=== PATIENT | female | born 1945 | race Caucasian/White ===

== ENCOUNTER 2022-03-23 22:06 | Emergency (ER) | payer MEDICARE ==
[~2022-03-23] VITALS: Ht 165.1 cm; Wt 108.9 kg
[2022-03-23] MEDS ORDERED: KETOROLAC TROMETHAMINE 60 MG/2 ML VIAL IM ONE (23:15)
[2022-03-23] MEDS ORDERED: KETOROLAC TROMETHAMINE 60 MG/2 ML VIAL ONE (23:50)
[2022-03-24] MEDS ORDERED: CIPRO500 MG PO (02:40)
[2022-03-24] MEDS ORDERED: PYRIDIUM100 MG PO (02:40)
== END 2022-03-24 02:45 | disposition home or self-care (01) ==
LOC: FSED 22:16
DX: R30.0 Dysuria (principal); N20.0 Calculus of kidney; R10.30 Lower abdominal pain, unspecified; K57.30 Diverticulosis of large intestine without perforation or abscess without bleeding
CPT/HCPCS: 74176; 81003; 99283; J1885

== ENCOUNTER 2022-08-25 17:10 | Inpatient (IN) | payer MEDICARE ==
[~2022-08-25] VITALS: Ht 165.1 cm; Wt 99.8 kg
[~2022-08-25 17:10] MED LIST: CIPRO500 MG PO; PYRIDIUM100 MG PO
[2022-08-25] MEDS ORDERED: SODIUM CHLORIDE 0.9% 1000ML 1,000 ML ONE ×2 (17:50→21:10)
[2022-08-25] MEDS ORDERED: KETOROLAC TROMETHAMINE 30 MG/ML VIAL ONE (17:50)
[2022-08-25] MEDS ORDERED: ONDANSETRON HCL INJ 2MG/ML 2ML 2 MG/ML VIAL ONE (17:50)
[2022-08-25] MEDS ORDERED: KETOROLAC TROMETHAMINE 30 MG/ML VIAL IV STA (17:51)
[2022-08-25] MEDS ORDERED: ONDANSETRON HCL INJ 2MG/ML 2ML 2 MG/ML VIAL IV STA (17:51)
[2022-08-25] MEDS ORDERED: SODIUM CHLORIDE 0.9% 1000ML 1,000 ML IV ONE (18:00)
[2022-08-25] MEDS ORDERED: TAMSULOSIN HCL 0.4 MG CAP PO SCH (20:15)
[2022-08-25] MEDS ORDERED: Morphine 4mg INJECTION 4 MG/ML INJ IV PRN (20:30)
[2022-08-25] MEDS ORDERED: ONDANSETRON HCL INJ 2MG/ML 2ML 2 MG/ML VIAL IV PRN (20:30)
[2022-08-25] MEDS ORDERED: KETOROLAC TROMETHAMINE 30 MG/ML VIAL IV PRN (20:30)
[2022-08-25] MEDS ORDERED: TAMSULOSIN HCL 0.4 MG CAP PO ONE (20:30)
[2022-08-25] MEDS ORDERED: TAMSULOSIN HCL 0.4 MG CAP ONE ×2 (21:09→21:10)
[2022-08-25] MEDS ORDERED: CEFTRIAXONE 1 GM VIAL ONE (21:10)
[2022-08-26] VITALS (7 sets, daily range): BP systolic 118–138; BP diastolic 56–86
[2022-08-26] MEDS ORDERED: ZESTRIL10 MG PO (03:44)
[2022-08-26] MEDS ORDERED: HYDROCHLOROTHIA25 MG PO (03:44)
[2022-08-26] MEDS: SODIUM CHLORIDE 0.9% 1000ML 1,000 ML IV SCH ×2 (06:18→06:30)
[2022-08-26 07:33] LABS: BASOPHILS % 0.3 % (0.0-1.0); EOSINOPHILS # (AUTO) 0.1 (0.0-0.4); EOSINOPHILS % 1.6 % (0.0-6.0); HEMATOCRIT 43.5 % (34.2-44.1); HEMOGLOBIN 13.7 g/dL (12.0-16.0); LYMPHOCYTES # (AUTO) 1.4 (1.0-3.2); LYMPHOCYTES % 22.7 % (18.0-39.1); MEAN CORPUSCULAR HEMOGLOBIN 32.5 pg (28-32); MEAN CORPUSCULAR HGB CONC 31.5 g/dL (31-35); MEAN CORPUSCULAR VOLUME 103.3 fL (81-99); MONOCYTES # (AUTO) 0.6 (0.2-0.8); MONOCYTES % 9.2 % (4.4-11.3); PLATELET COUNT 240 x10e3/uL (140-360); RED BLOOD COUNT 4.21 x10e6/uL (3.6-5.1); RED CELL DISTRIBUTION WIDTH 11.8 % (11.7-14.4)
[2022-08-26 07:58] LABS: ALBUMIN 3.7 g/dL (3.5-5.0); ALBUMIN/GLOBULIN RATIO 1.1 (0.8-2.0); CALCIUM 9.4 mg/dL (8.4-10.2); CREATININE, SERUM 0.68 mg/dL (0.57-1.11)
[2022-08-26] MEDS ORDERED: TAMSULOSIN HCL 0.4 MG CAP PO SCH (21:00)
== END 2022-08-26 15:32 | disposition home or self-care (01) | DRG 694 ==
LOC: FSED 17:46 → ERHOLD 20:35 → MED/SURG3 21:54
PROVIDERS: ADMIT Internal Medicine; ATTEND Internal Medicine
DX: N13.2 Hydronephrosis with renal and ureteral calculous obstruction (principal); I10 Essential (primary) hypertension; E66.01 Morbid (severe) obesity due to excess calories; N32.89 Other specified disorders of bladder; Z68.36 Body mass index [BMI] 36.0-36.9, adult; Z79.899 Other long term (current) drug therapy; Z82.49 Family history of ischemic heart disease and other diseases of the circulatory system; Z83.3 Family history of diabetes mellitus
CPT/HCPCS: 36415; 74176; 80048; 80053; 80076; 81003; 85025; 87086; 96374; 96376; 99284; J0696; J1885; J2405; J7030

== ENCOUNTER 2023-06-18 21:20 | Emergency (ER) | payer MEDICARE ==
[~2023-06-18] VITALS: Ht 165.1 cm; Wt 98.4 kg
[~2023-06-18 21:20] MED LIST changes: +HYDROCHLOROTHIA25 MG PO; +ZESTRIL10 MG PO
[2023-06-18 22:11] LABS: BASOPHILS # (AUTO) 0.1 (0.0-0.1); BASOPHILS % 0.4 % (0.0-1.0); EOSINOPHILS # (AUTO) 0.3 (0.0-0.4); HEMATOCRIT 41.1 % (34.2-44.1); HEMOGLOBIN 14.1 g/dL (12.0-16.0); LYMPHOCYTES # (AUTO) 2.3 (1.0-3.2); LYMPHOCYTES % 17.2 % (18.0-39.1); MEAN CORPUSCULAR HEMOGLOBIN 33.1 pg (28-32); MEAN CORPUSCULAR HGB CONC 34.3 g/dL (31-35); MEAN CORPUSCULAR VOLUME 96.5 fL (81-99); MONOCYTES # (AUTO) 1.7 (0.2-0.8); MONOCYTES % 12.4 % (4.4-11.3); NEUTROPHILS % 67.6 % (38.7-80.0); PLATELET COUNT 283 x10e3/uL (140-360); RED BLOOD COUNT 4.26 x10e6/uL (3.6-5.1); RED CELL DISTRIBUTION WIDTH 12.4 % (11.7-14.4); WHITE BLOOD COUNT 13.34 x10e3/uL (4.8-10.8)
[2023-06-18 22:19] LABS: ANION GAP 15.7 mmol/L (8-16); CALCIUM 9.9 mg/dL (8.4-10.2); CREATININE, SERUM 1.68 mg/dL (0.57-1.11); POTASSIUM 4.7 mmol/L (3.5-5.1)
[2023-06-18 22:28] LABS: BACTERIA,URINE MANY /HPF; CLARITY,URINE CLOUDY (CLEAR); COLOR,URINE YELLOW (YELLOW); EPITHELIAL CELLS,URINE MANY /LPF; KETONES,URINE NEGATIVE (NEGATIVE); LEUKOCYTE ESTERASE ,URINE NEGATIVE (NEGATIVE); NITRITE,URINE NEGATIVE (NEGATIVE); PROTEIN,URINE DIPSTICK >=300 (NEGATIVE); RBC,URINE >50 /HPF (0-5); RENAL EPITHELIAL CELLS,URINE FEW; URINE UROBILINOGEN 0.2 mg/dL (0.2 - 1)
[2023-06-18 22:29] LABS: CALCIUM OXALATE CRYSTALS,UR FEW (FEW); HYALINE CASTS 0-1 (0-1)
[2023-06-19] MEDS ORDERED: CEFTRIAXONE 1 GM VIAL ONE ×2 (00:13→00:21)
[2023-06-19] MEDS ORDERED: LACTATED RINGER'S 1,000 ML ONE (00:13)
[2023-06-19] MEDS ORDERED: LACTATED RINGER'S 500 ML IV ONE (00:15)
[2023-06-19 01:09] VITALS: BP 91/51; PULSE 68; RESP 18; TEMP 97.7; O2SAT 95
== END 2023-06-19 01:20 | disposition home or self-care (01) ==
LOC: FSED 21:28
DX: R10.30 Lower abdominal pain, unspecified (principal); R11.0 Nausea; N17.9 Acute kidney failure, unspecified; N39.0 Urinary tract infection, site not specified; N13.30 Unspecified hydronephrosis; K57.30 Diverticulosis of large intestine without perforation or abscess without bleeding
CPT/HCPCS: 36415; 74176; 80048; 81001; 85025; 87040; 87086; 99284; J0696; J7121